=== PATIENT | male | born 1985 | race Caucasian/White ===

== ENCOUNTER 2017-09-04 06:42 | Day surgery (SDC) | payer SELFPAY, BC ==
[2017-09-04] MEDS ORDERED: Ciprofloxacin in D5W 400 MG in Premix Bag 1 BAG IV ONE ×2 (07:00)
[2017-09-04] MEDS ORDERED: Sodium Chloride 0.9% 2.5 ML Syringe FLUSH PRN (07:00)
[2017-09-04] MEDS ORDERED: Sodium Chloride 0.9% 10 ML Syringe FLUSH PRN (07:00)
[2017-09-04] MEDS ORDERED: Lactated Ringers 1,000 ML IV SCH (07:00)
[2017-09-04] MEDS ORDERED: Lidocaine 1% 50 ML MDV ONE (07:52)
[2017-09-04] MEDS ORDERED: Bacitracin Oint 28.35 GM Tube ONE (08:07)
[2017-09-04] MEDS ORDERED: Midazolam 1 MG/ML 2 ML SDV ONE ×2 (08:29→09:55)
--- NOTE | 2017-09-04 12:36 | OR ---
SURGEON: Marleny Daniel M.D. DATE OF PROCEDURE: 09/04/2017 PREOPERATIVE DIAGNOSIS: Infertility status post bilateral vasectomy. POSTOPERATIVE DIAGNOSIS: Infertility status post bilateral vasectomy. OPERATION: Bilateral vasovasostomy. DESCRIPTION OF OPERATION: The patient was given adequate sedation, the lower abdomen and external genitalia area were all prepped and draped in sterile drapes. The right vas deferens site is isolated. A small incision was made over the vas. The site of the previous anastomosis was resected. The expressed fluid from the proximal end showed some sperms. The anastomosis between the proximal and distal ends were completed using interrupted 9-0 nylon sutures. A total of 6 sutures were used. All bleeding points were fulgurated. The skin was closed with 2 sutures of 4-0 chromic after a small piece of Surgicel was left in adjacent to the site of the anastomosis. The exact same thing was done on the left side. The patient tolerated the procedure well and was moved to recovery room in stable condition. PRIMARY SURGEON: SECONDARY SURGEON: RESERVE OFFICER: REASON RESERVE OFFICER WAS NECESSARY: ROLE OF RESERVE OFFICER: JYOTI BUTLER /[id number]
== END 2017-09-04 12:47 | disposition home or self-care (01) ==
LOC: MW.SDS 06:42
PROVIDERS: ATTEND Urology
DX: Z31.0 Encounter for reversal of previous sterilization (principal); R10.9 Unspecified abdominal pain; Z88.5 Allergy status to narcotic agent; Z88.1 Allergy status to other antibiotic agents
CPT/HCPCS: 55400; A9270; J0744; J2250; J7120; 88302; 88329